=== PATIENT | male | born 1995 | race Caucasian/White ===

== ENCOUNTER 2020-09-30 13:08 | Emergency (ER) | payer BC ==
[2020-09-30 13:24] VITALS: BP 125/90; PULSE 82; RESP 18; TEMP 98
[2020-09-30] MEDS ORDERED: LIDOCAINE 1% INJ 10MG/ML (20 ML MDV) SQ ONE (13:35)
[2020-09-30] MEDS ORDERED: DIPH,PERTUS(ACELL)TETVAC-LF 0.5 ML VIAL IM ONE (13:35)
--- NOTE | 2020-09-30 13:37 | ED ---
Wound/Laceration HPI - General Chief Complaint: Wound/Laceration Stated Complaint: finger lac Source: patient, RN notes reviewed Mode of arrival: ambulatory Limitations: no limitations - History of Present Illness Initial Comments: Patient is a 25-year-old male that presents to emergency with a right index finger laceration. He notes that he tried catching a knife as it was falling and up grabbing the blade. He notes that he wrapped in some cotton Kerlix and taped it up. He denied any serious bleeding and that stopped on its own prior to arrival. He noted that he came in because he thought that it might a needed a few sutures area he states that he can move it, feel it. He denied any weakness numbness tingling. He was not sure if he is up-to-date on his tetanus vaccine. - Related Data Home Medications Medication Instructions Recorded Confirmed No Known Home Medications 04/26/15 04/26/15 Allergies Allergy/AdvReac Type Severity Reaction Status Date / Time No Known Allergies Allergy Verified 09/30/20 13:24 Review of Systems ROS Statement: Those systems with pertinent positive or pertinent negative responses have been documented in the HPI. ROS Other: All systems not noted in ROS Statement are negative. Past Medical History Past Medical History: No Reported History History of Any Multi-Drug Resistant Organisms: None Reported Past Surgical History: Orthopedic Surgery Past Psychological History: No Psychological Hx Reported Smoking Status: Current every day smoker Past Alcohol Use History: Occasional Past Drug Use History: Marijuana General Exam Limitations: no limitations General appearance: alert, in no apparent distress Head exam: Present: atraumatic, normocephalic, normal inspection Eye exam: Present: normal appearance, PERRL, EOMI. Absent: scleral icterus, conjunctival injection, periorbital swelling Neck exam: Present: normal inspection Respiratory exam: Present: normal lung sounds bilaterally. Absent: respiratory distress, wheezes, rales, rhonchi, stridor Cardiovascular Exam: Present: regular rate, normal rhythm, normal heart sounds. Absent: systolic murmur, diastolic murmur, rubs, gallop, clicks GI/Abdominal exam: Present: soft, normal bowel sounds. Absent: distended, tenderness, guarding, rebound, rigid Extremities exam: Present: normal inspection, full ROM, normal capillary refill. Absent: tenderness, pedal edema, joint swelling, calf tenderness Neurological exam: Present: alert, oriented X3, CN II-XII intact Psychiatric exam: Present: normal affect, normal mood Skin exam: Present: warm, dry, intact, normal color, other (Laceration from the lateral aspect of the PIP diagonally across to the MCP joint of the right index finger). Absent: rash Course Vital Signs 09/30/20 09/30/20 13:21 13:53 Temperature 98.0 F Pulse Rate 82 Respiratory 18 18 Rate Blood Pressure 125/90 O2 Sat by Pulse 98 Oximetry Procedures - Laceration Laceration #1 Consent Obtained: verbal consent Indication: laceration Site: hand (Index finger) Size (cm): 6 Description: linear Depth: simple, single layer Anesthetic Used: lidocaine 1% Anesthesia Technique: local infiltration Amount (mls): 3 Pre-repair: irrigated extensively Type of Sutures: nylon Size of Sutures: 5-0 Number of Sutures: 6 Patient Tolerated Procedure: well, no complications Medical Decision Making - Medical Decision Making 45-year-old male with laceration right index finger on the ventral side. X-ray of the right finger, tetanus vaccine, lidocaine ordered. Case discussed with Dr. Bell, patient can discharge home. - Radiology Data Radiology results: report reviewed, image reviewed Right finger x-ray: No significant abnormality is evident. Disposition Clinical Impression: Laceration Disposition: HOME SELF-CARE Condition: Stable Instructions (If sedation given, give patient instructions): Care For Your Stitches (ED), Laceration (ED) Additional Instructions: Please return to the Emergency Department if symptoms worsen or any other concerns. Can clean with warm water and mild soap. Can cover dressing as needed. Come back in 5-7 days for suture removal. Can take [id number] pain medication as needed for symptom control. Is patient prescribed a controlled substance at d/c from ED?: No Referrals: None,Stated [Primary Care Provider] - 1-2 days Time of Disposition: 14:17
--- NOTE | 2020-09-30 14:02 | XR ---
Second digit right hand HISTORY: Laceration 3 views of the second digit of the right hand There is no radiopaque foreign body. Bone mineralization, joint spaces and alignment are maintained. No fracture or dislocation. IMPRESSION: No significant abnormality is evident
== END 2020-09-30 14:40 | disposition home or self-care (01) ==
LOC: EC 13:08
DX: S61.210A Laceration without foreign body of right index finger without damage to nail, initial encounter (principal); W26.0XXA Contact with knife, initial encounter; F17.200 Nicotine dependence, unspecified, uncomplicated; F12.90 Cannabis use, unspecified, uncomplicated; Z23 Encounter for immunization
CPT/HCPCS: 73140; 90715; 99283; 96372; 12002; 90471; J2001